=== PATIENT | female | born 1965 | race Caucasian/White ===

== ENCOUNTER 2017-02-17 08:03 | Observation (INO) | payer OTHER ==
[~2017-02-17] VITALS: Ht 157.5 cm; Wt 77.1 kg
--- NOTE | 2017-02-17 08:23 | ED GENERAL ADULT ---
History of Present Illness General Chief Complaint: Syncope and Near-Syncope Stated Complaint: BIBA FOR SYNCOPE Source: patient Exam Limitations: no limitations Vital Signs & Intake/Output Vital Signs & Intake/Output Vital Signs Date Time Temp Pulse Resp B/P B/P Pulse O2 O2 Flow FiO2 Mean Ox Delivery Rate 02/17 0805 96.9 66 20 134/80 100 Room Air Allergies Coded Allergies: amoxicillin (Severe, RASH 04/26/15) acetaminophen (From VICODIN) (Mild, ITCHING 04/26/15) hydrocodone (From VICODIN) (Mild, ITCHING 04/26/15) Triage Note: PT BIBA FROM HOME. STATES STARTED FEELING ILL ON FRIDAY, PRODUCTIVE COUGH AND COLD, RUNNY NOSE, CONTINUED THROUGH FRIDAY, LAST NIGHT STARTED WITH N/V/D. STATES THIS AM SHE FELT DIZZY ON THE WAY TO THE BR WHEN SHE HAD SYNCOPAL EVENT WHILE ON THE TOILET WITH LOC X 10 SECONDS X2. PT DENIES CP/SOB. STATES H/A AFTER D/T STRIKING HEAD. PT HAS NO RECOLLECTION OF EVENTS, OF PT WITNESSED Triage Nurses Notes Reviewed? yes Onset: Abrupt Duration: day(s): (3), constant, getting worse Timing: recent history Injury Environment: home No Modifying Factors: none HPI: 51-year-old female comes into the emergency room after having a syncopal episode at home prior to arrival. Patient reports that she's been feeling sick since this past Friday. She's had associated runny nose and body aches and chills and cough. The symptoms progressed until Friday. Last night she began with nausea vomiting and diarrhea. Less than 5 episodes of each. Denies any blood in the stool. Some abdominal cramping. Denies any chest pain shortness of breath. Patient reports this morning she was on her way to the bathroom when she felt profoundly weak lightheaded and dizzy and like she was going to black out. She reportedly had 2 short syncopal episodes that lasted approximately 10 seconds. She denied any preceding chest pain shortness of breath or palpitations. No prior history. EMS was called. Patient was brought in by ambulance. After the syncopal episode the patient apparently hit her head. She complains of headache at this time. There is been no vomiting since the fall. She denies any neck pain. (Gavin Valenzuela) Reconcile Medications No Known Home Medications (Isabela Montoya MD) Past History Travel History Traveled to [place] past 21 day No Medical History Any Pertinent Medical History? see below for history Neurological: NONE EENT: NONE Cardiovascular: NONE Respiratory: NONE Gastrointestinal: NONE Hepatic: NONE Renal: NONE Musculoskeletal: NONE Psychiatric: NONE Endocrine: 'ENLARGED THYROID" Tetanus Vaccine: 04/26/15 Surgical History Surgical History: non-contributory Psychosocial History What is your primary language Estonian Tobacco Use: Never used ETOH Use: denies use Illicit Drug Use: denies illicit drug use Family History Hx Contributory? No (Gavin Valenzuela) Review of Systems Review of Systems Constitutional: Reports: see HPI. EENTM: Reports: see HPI. Respiratory: Reports: see HPI. Cardiovascular: Reports: see HPI. GI: Reports: see HPI. Genitourinary: Reports: no symptoms. Musculoskeletal: Reports: see HPI. Skin: Reports: no symptoms. Neurological/Psychological: Reports: no symptoms. Hematologic/Endocrine: Reports: no symptoms. Immunologic/Allergic: Reports: no symptoms. All Other Systems: Reviewed and Negative (Gavin Valenzuela) Physical Exam Physical Exam General Appearance: alert, awake, lethargic Head: atraumatic Eyes: Bilateral: normal appearance, PERRL, EOMI. Ears, Nose, Throat: normal pharynx, normal ENT inspection, hearing grossly normal Neck: normal inspection, supple, full range of motion, no midline tenderness Respiratory: normal breath sounds, no respiratory distress Cardiovascular: regular rate/rhythm, tachycardia Gastrointestinal: soft, non-tender Back: normal inspection Extremities: normal inspection, normal range of motion, no edema Neurologic/Psych: no motor/sensory deficits, awake, alert, oriented x 3, normal gait, tram operator II-XII nml as tested Skin: intact, normal color Core Measures ACS in differential dx? No CVA/TIA Diagnosis: No Sepsis Present: No Sepsis Focused Exam Completed? No (Gavin Valenzuela) Physical Exam Cardiovascular: systolic murmur (Isabela Montoya MD) Progress Differential Diagnoses I considered the following diagnoses in my evaluation of the patient: Orthostatic hypotension, vasovagal, valvular disorder, gastric enteritis, influenza, viral syndrome, dehydration, electrolyte abnormality, AK, Plan of Care: Orders Procedure Date/time Status Regular Diet 02/17 L Active Patient Data 02/[address] in observation 02/17 1004 Active ED Holding Orders 02/17 1004 Active Vital Signs 02/17 1004 Active Code Status 02/17 1004 Active Add-on Test (ER Only) 02/17 0743 Active THYROID STIMULATING HORMONE 02/18 824 Complete MISTAKE 02/17 814 Active Telemetry/Drivers License Examiner 02/17 813 Active RAPID VIRAL INFLUENZA A 02/17 813 Complete URINALYSIS 02/17 813 Active TROPONIN LEVEL 02/17 813 Complete LIPASE 02/17 813 Complete LACTIC ACID 02/17 813 Complete COMPREHENSIVE METABOLIC PANEL 02/17 813 Complete CBC WITHOUT DIFFERENTIAL 02/17 813 Complete AMYLASE 02/17 813 Complete EKG 02/17 813 Active Intake & Output 02/18 812 Active Current Medications Sig/Bladimir Start time Last Medication Dose Stop Time Status Admin Sodium Chloride 1,000 ML ONCE ONE 02/17 914 AC 02/17 (Normal Saline 0.9%) 02/17 1554 0923 Laboratory Tests 02/17/17 1114: Lactic Acid Cancelled 02/17/17824: Anion Gap 11, Estimated GFR > 60, BUN/Creatinine Ratio 15.7, Glucose 133 H, Lactic Acid 0.8, Calcium 9.1, Total Bilirubin 0.4, AST 23, ALT 42, Alkaline Phosphatase 78, Troponin I < 0.01, Total Protein 6.3, Albumin 3.8, Globulin 2.5, Albumin/Globulin Ratio 1.5, Amylase 44, Lipase 75, TSH 1.250, CBC w Diff NO MAN DIFF REQ, RBC 4.30, MCV 87.3, MCH 29.6, RDW 12.6, MPV 7.2 L, Gran % 83.5 H, Lymphocytes % 9.6 L, Monocytes % 5.8, Eosinophils % 0.8, Basophils % 0.3, Absolute Granulocytes 6.8 H, Absolute Lymphocytes 0.8 L, Absolute Monocytes 0.5, Absolute Eosinophils 0.1, Absolute Basophils 0, PUBS MCHC 33.9 Microbiology 02/17 841 NASOPHARYN: Influenza Virus A & B Rapid Smear - COMP PATIENT SEEN AND EXAMINED. NO IMPROVEMENT AFTER FLUIDS, NO EVIDENCE OF DEHYDRATION. 2 SEPARATE EPISODES OF SYNCOPE AT HOME. WILL PLACE ON TELE FOR 23 HR OBS. (Lindsay SYED,Isabela) Diagnostic Imaging: Viewed by Me: Radiology Read, CT Scan. Discussed w/RAD: Radiology Read, CT Scan. Radiology Impression: PATIENT: RADHA WELLS PRESENT AGE: 51 PATIENT ACCOUNT NO: [id number] : 63 LOCATION: [facility] ORDERING PHYSICIAN: Gavin GÓMEZ SERVICE DATE: 02/17/17 EXAM TYPE: CAT - CT HEAD WO IV CONTRAST EXAMINATION: CT HEAD WITHOUT CONTRAST CLINICAL INFORMATION: Head injury after syncopal episode. COMPARISON: CT scan of the head 01/23/2017. TECHNIQUE: Contiguous axial imaging was performed from the skull base to vertex without intravenous administration of contrast. DLP: 625.24 mGy- cm FINDINGS: There is no acute intracranial hemorrhage or abnormal extra-axial collection. No intracranial mass effect or midline shift. Lateral and third ventricles are normal. No hydrocephalus. Samuel-white matter differentiation is grossly preserved and there is no evidence of acute territorial infarct. The calvarium and skull base are intact. Mastoid air cells and middle ear cavities are well aerated. Visualized paranasal sinuses are well-aerated. Globes and orbits are symmetric. IMPRESSION: Normal CT scan of the head. DICTATED BY: Benjamin Quevedo MD DATE/TIME DICTATED:02/17/171024 RN IMAGING: BEN DATE/TIME TRANSCRIBED:02/17/171024 CONFIDENTIAL, DO NOT COPY WITHOUT APPROPRIATE AUTHORIZATION. <Electronically signed in Other Vendor System> SIGNED BY: Benjamin Quevedo MD 02/17/17 1030, PATIENT: RADHA WELLS PRESENT AGE: 51 PATIENT ACCOUNT NO: [id number] : 63 LOCATION: [facility] ORDERING PHYSICIAN: Gavin GÓMEZ SERVICE DATE: 02/17/17 EXAM TYPE: RAD - XRY-PORTABLE CHEST XRAY EXAMINATION: XR PORTABLE CHEST CLINICAL INFORMATION: Syncope. Coughing. COMPARISON: Chest radiograph 08/2007. TECHNIQUE: Portable frontal view of the chest was obtained. FINDINGS: The lungs are clear without consolidation, edema, or effusion. There is no pneumothorax. The cardiomediastinal silhouette appears normal. The osseous structures are intact. IMPRESSION: No acute abnormality in the chest. DICTATED BY: Jed Pérez MD DATE/TIME DICTATED:02/17/17905 RN IMAGING: BEN DATE/TIME TRANSCRIBED:02/17/17905 CONFIDENTIAL, DO NOT COPY WITHOUT APPROPRIATE AUTHORIZATION. <Electronically signed in Other Vendor System> SIGNED BY: Jed Pérez MD 02/17/17 0910 Initial ED EKG: normal sinus rhythm, rate (63), BORDERLINE T WAVE ABNORMALITIES (Gavin Valenzuela) Departure Departure Disposition: STILL A PATIENT Condition: Stable Clinical Impression Primary Impression: Syncope Secondary Impressions: Viral syndrome Referrals: Wen SYED,Anita (PCP/Family) Departure Forms: Customer Survey General Discharge Information Observation Note Spoke With: Faina SYED,Anthony Physician Advisor Notified: ZOE ANDRADE DO Place Patient In: Non-ED OBS Care Area Rationale for Observation: My rational for observation is as follows . Patient will require echocardiogram. Cardiac telemetry. Cardiac consultation. Serial troponins. Unclear as to why the patient had a syncopal episode at this time. Medically not safe for discharge and will require further observation and management. (Gavin Valenzuela) Departure Prescriptions: Current Visit Scripts No Known Home Medications PA/PUBLICATIONS MANAGER Co-Sign Statement Statement: ED Attending supervision documentation- [X] I saw and evaluated the patient. I have also reviewed all the pertinent lab results and diagnostic results. I agree with the findings and the plan of care as documented in the PA's/PUBLICATIONS MANAGER's documentation. [X] I have reviewed the ED Record and agree with the PA's/PUBLICATIONS MANAGER's documentation. [] Additions or exceptions (if any) to the PAs/PUBLICATIONS MANAGER's note and plan are summarized below: [] (Lindsay SYED,Isabela) Critical Care Note Critical Care Note Critical Care Time: non-applicable (Gavin Valenzuela)
[2017-02-17 08:34] LABS: ABSOLUTE BASOPHIL COUNT 0 /CUMM (0.0-0.2); ABSOLUTE EOSINOPHIL COUNT 0.1 /CUMM (0.0-0.7); ABSOLUTE GRANULOCYTE CT 6.8 /CUMM (1.4-6.5); ABSOLUTE LYMPH COUNT 0.8 /CUMM (1.2-3.4); ABSOLUTE MONOCYTE COUNT 0.5 /CUMM (0.10-0.60); BASOPHIL % 0.3 % (0.0-2.0); EOSINOPHIL % 0.8 % (0-5); HEMATOCRIT 37.5 % (37-47); MEAN CORPUSCULAR HGB 29.6 PG (27.0-31.0); MEAN CORPUSCULAR HGB CONC 33.9 G/DL (33.0-37.0); MEAN CORPUSCULAR VOLUME 87.3 FL (81.0-99.0); MEAN PLATELET VOLUME 7.2 FL (7.4-10.4); PLATELET COUNT 275 /CUMM (130-400); RBC DISTRIBUTION WIDTH 12.6 % (11.5-14.5); WHITE BLOOD CELL COUNT 8.2 /CUMM (4.8-10.8)
[2017-02-17 08:53] LABS: GRANULOCYTE % 83.5 % (42.2-75.2)
--- NOTE | 2017-02-17 09:10 | RADIOLOGY REPORT ---
EXAMINATION: XR PORTABLE CHEST CLINICAL INFORMATION: Syncope. Coughing. COMPARISON: Chest radiograph 12/18/2007. TECHNIQUE: Portable frontal view of the chest was obtained. FINDINGS: The lungs are clear without consolidation, edema, or effusion. There is no pneumothorax. The cardiomediastinal silhouette appears normal. The osseous structures are intact. IMPRESSION: No acute abnormality in the chest.
--- NOTE | 2017-02-17 10:30 | CT SCAN REPORT ---
EXAMINATION: CT HEAD WITHOUT CONTRAST CLINICAL INFORMATION: Head injury after syncopal episode. COMPARISON: CT scan of the head 01/23/2017. TECHNIQUE: Contiguous axial imaging was performed from the skull base to vertex without intravenous administration of contrast. DLP: 625.24 mGy-cm FINDINGS: There is no acute intracranial hemorrhage or abnormal extra-axial collection. No intracranial mass effect or midline shift. Lateral and third ventricles are normal. No hydrocephalus. Samuel-white matter differentiation is grossly preserved and there is no evidence of acute territorial infarct. The calvarium and skull base are intact. Mastoid air cells and middle ear cavities are well aerated. Visualized paranasal sinuses are well-aerated. Globes and orbits are symmetric. IMPRESSION: Normal CT scan of the head.
--- NOTE | 2017-02-17 13:36 | History & Physical ---
Olman SYED,[facility] 02/17/17 1336: General Information and HPI MD Statement: I have seen and personally examined RADHA WELLS and documented this H&P. The patient is a 51 year old F who presented with a patient stated chief complaint of [syncopal attack]. Source of Information: patient, family Exam Limitations: no limitations History of Present Illness: Mrs. Wells is 51 year old lady with no significant past medical history except for ? Cardiac murmur who presented to ED with chief complaint of syncopal attack early this morning. Patient reported that since last Friday she has been experiencing symptoms of upper respiratory infection including nonproductive cough, congested nose, subjective fever and chills, body aches. Yesterday she started to have nausea, vomiting 3 times didn't have any blood, diarrhea 3 times daily and have any blood. Early this morning when the patient was in the bathroom on the toilet she passed out for about 10-20 seconds, her hear a bang and went to check on her. She was unresponsive and he laid her down on her side, denied any convulsion or stool/urinary incontinence. Patient regained consciousness and was disoriented for around 5-10 seconds and then started to regain his consciousness. The patient denied any straining while in the bathroom. She asked to go back to the toilet and again had dizziness and drowsiness but no loss of consciousness according to the however he reported she looked like having "frothy mouth"and called EMS. According to the son who was RN, her vital signs were within normal, no hypoglycemia. Patient denied decrease oral intake, prior similar episodes, dizziness,blurry vision, headaches except for after the syncopal attack. Currently has a headache 9/10 associated with photophobia but no blurry vision. The only medication she took was Mucinex yesterday one time. She reported history of sinusitis a month ago for which she took an antibiotic. Patient doesn't smoke, alcohol occasionally and no drugs. Allergies/Medications Allergies: Coded Allergies: amoxicillin (Severe, RASH 04/26/15) acetaminophen (From VICODIN) (Mild, ITCHING 04/26/15) hydrocodone (From VICODIN) (Mild, ITCHING 04/26/15) Home Med list No Known Home Medications Past History Travel History Traveled to [place] past 21 day No Medical History Neurological: NONE EENT: NONE Cardiovascular: NONE Respiratory: NONE Gastrointestinal: NONE Hepatic: NONE Renal: NONE Musculoskeletal: NONE Psychiatric: NONE Endocrine: 'ENLARGED THYROID" Tetanus Vaccine: 04/26/15 Surgical History Surgical History: non-contributory Past Family/Social History Psychosocial History ETOH Use: denies use Illicit Drug Use: denies illicit drug use Review of Systems Review of Systems Constitutional: Reports: chills, fever, weakness. EENTM: Reports: nasal congestion. Denies: blurred vision, visual changes, ear pain, throat pain. Cardiovascular: Denies: chest pain, orthopena, palpitations, peripheral edema. Respiratory: Reports: cough. Denies: short of breath, sputum production. GI: Reports: diarrhea, nausea, vomiting. Denies: abdominal pain, bloating. Genitourinary: Denies: dysuria, frequency, hematuria. Musculoskeletal: Denies: back pain, joint pain. Skin: Denies: rash. Neurological/Psychological: Reports: headache. Denies: confusion, numbness, tremors. Exam & Diagnostic Data Last 24 Hrs of Vital Signs/I&O Vital Signs Date Time Temp Pulse Resp B/P B/P Pulse O2 O2 Flow FiO2 Mean Ox Delivery Rate 02/17 1224 97.6 60 20 105/53 100 Room Air 02/17 1030 97.0 70 20 130/78 99 Room Air 02/17 0805 96.9 66 20 134/80 100 Room Air Intake & Output 02/17 1600 08 0800 02/17 0000 Intake Total 2300 Output Total 400 Balance 1900 Intake, IV 2000 Intake, Oral 300 Output, Urine 400 Patient 77.111 kg Weight Weight Reported by Patient Measurement Method Physical Exam General Appearance Alert, Oriented X3, Cooperative, No Acute Distress Skin No Rashes Skin Temp/Moisture Exam: Warm/Dry HEENT Atraumatic, PERRLA, EOMI, Mucous Membr. moist/pink Neck Supple Lymphatic no cervical lymphadenopathy Cardiovascular Regular Rate, Normal S1, Normal S2, No Murmurs Lungs Clear to Auscultation, Normal Air Movement Abdomen Normal Bowel Sounds, Soft, No Tenderness Neurological Normal Speech, Strength at 5/5 X4 Ext, Normal Tone, Sensation Intact, Cranial Nerves 3-12 NL, Reflexes 2+ Extremities No Clubbing, No Cyanosis, No Edema, Normal Pulses Assessment/Plan Assessment: Ms. Wells is 51 year old lady with no significant past medical history who was presented to ED with chief complaint of syncopal attack. On presentation vital signs were temperature 96.9, pulse 66 regular, blood pressure 154/80, respiratory rate 20 saturating 100% on room air. Labs pertinent to white blood cell 8.2, electrolytes sodium 142, potassium 4.3, chloride 104, bicarbonate 27, BUN/creatinine 11/0.7, glucose 153, lactic acid 0.8, troponin 0.01, UA negative, influenza rapid test negative Imaging CAT scan head negative for any intracranial pathology, chest x-ray unremarkable EKG normal sinus rhythm, rate 63, QTc 471 Problem list #Syncopal attack due to vsovagal versus dehydration #Upper respiratory tract infection patient reported subjective fever, chills, nonproductive cough. On presentation afebrile, no leukocytosis #Gastroenteritis with history of nausea, vomiting, diarrhea however no electrolyte imbalance Plan -Place in telemetry floor for observation -Gentle IV hydration 1 back normal saline 75 mL/h -Ibuprofen 400 3 times a day as an anti-inflammatory and for pain and acetaminophen for for moderate pain -Orthostats measurement -Echocardiogram given present history of syncope and remote history of questionable cardiac murmur -Vital signs every shift -CBC BMP in a.m. -Diet regular -DVT prophylaxis Lovenox aand ALPS -Code full As Ranked By This Provider Problem List: 1. Syncope Observation Initial Note - I have personally examined RADHA WELLS on 02/17/17 at 1445. The disposition of RADHA WELLS is uncertain at this time and before a determination can be made, she requires a period of observation for the following reasons [syncopal attack] Core Measures/Misc (10/27) Acute Coronary Syndrome ACS Diagnosis: No Congestive Heart Failure Congestive Heart Failure Diagnosis No Cerebrovascular Accident CVA/TIA Diagnosis: No VTE (View Protocol) VTE Risk Factors Age>40 No Mechanical VTE Prophylaxis d/t N/A MechProphylax Ordered No VTE Pharm Prophylaxis d/t NA PharmProphylax ordered Sepsis (View protocol) Sepsis Present: No Ady Norman MD 02/17/17 2137: Attending Review Statement Attending Statement Attending MD Statement: examined this patient, discuss w/resident/PA/ROUGH AND TRUING MACHINE OPERATOR, agreed w/resident/PA/ROUGH AND TRUING MACHINE OPERATOR, discussed with family, reviewed EMR data (avail), discussed with nursing, amended to note Attending Assessment/Plan: Patient is a pleasant 51-year-old female with no significant past medical history who presents after a syncopal episode at home. She reports that within the past few days she has been feeling unwell with upper respiratory symptoms. Yesterday she developed diarrhea and vomiting with worsening malaise. Today while getting up to try to use the bathroom she suddenly collapsed to the ground. This happened before she got to the bathroom. She reported feeling dizzy prior to the fall. She denies similar history is in the past. She did admit that about a month ago she complained of headache and dizziness and was seen by primary care provider. Head CT was done which was only significant for sinusitis. She was treated with antibiotics at that time. She arrived in emergency room hemodynamically stable. CT of the head shows no acute pathology is. She is hemodynamically stable and afebrile. Prostatic vitals were negative. On examination she is alert and oriented 3. She does complain of malaise. Denies cough or chest pain. Denies shortness of breath. She complains of sinus fullness with mild tenderness in the maxillary sinus on examination. Heart sounds are regular. Lungs are clear to auscultation. Abdomen is soft and nontender. She has no peripheral edema. She has no focal neurologic deficit. She has no significant findings on laboratory data. Laboratory data is not suggestive of significant dehydration and will lead to loss of consciousness. Recommendations: -Place in observation level of care. -Telemetry monitoring to rule out arrhythmias. Echocardiogram to rule out valvular heart disease. -Gentle hydration with intravenous fluids. -Recommend saline nasal spray for her sinus fullness. -Her gastroenteritis and upper respiratory symptoms appear to be secondary to a viral syndrome. She shows no evidence of a bacterial infection. We'll send stool samples for workup if diarrhea persists. -Further workup and management will depend on her clinical course.
[2017-02-17 21:57] VITALS: BP 110/64
[2017-02-18 07:12] VITALS: BP 104/66
[2017-02-18 07:54] LABS: ABSOLUTE BASOPHIL COUNT 0 /CUMM (0.0-0.2); ABSOLUTE EOSINOPHIL COUNT 0.1 /CUMM (0.0-0.7); ABSOLUTE MONOCYTE COUNT 0.5 /CUMM (0.10-0.60); BASOPHIL % 0.6 % (0.0-2.0); EOSINOPHIL % 1.2 % (0-5); GRANULOCYTE % 72.1 % (42.2-75.2); HEMATOCRIT 33.7 % (37-47); MEAN CORPUSCULAR HGB 30.2 PG (27.0-31.0); MEAN CORPUSCULAR HGB CONC 34.8 G/DL (33.0-37.0); MEAN CORPUSCULAR VOLUME 86.6 FL (81.0-99.0); MEAN PLATELET VOLUME 7.8 FL (7.4-10.4); PLATELET COUNT 253 /CUMM (130-400); RED BLOOD CELL CT 3.89 /CUMM (4.20-5.40); WHITE BLOOD CELL COUNT 5.6 /CUMM (4.8-10.8)
--- NOTE | 2017-02-18 08:08 | PN- Housestaff ---
Shiraz SYED,Josette 02/18/17 0808: Subjective Follow-up For: Post viral syncopal episode Complaints: tenderness on the sinuses Tele-Events Since Last Visit: No any overnight events Subjective: Patient is seen and examined at the bedside. She was feeling much comfortable. She denies any dizziness on walking, though she still has stuffy nose and tenderness on the sinuses. Review of Systems Constitutional: Reports: no symptoms (sinus tenderness), weakness. Objective Last 24 Hrs of Vital Signs/I&O Vitals were stable Physical Exam General Appearance: Alert, Oriented X3, Cooperative, No Acute Distress Cardiovascular: Normal S1, Normal S2 Lungs: Clear to Auscultation, Normal Air Movement Neurological: Normal Speech Extremities: No Clubbing, No Cyanosis, No Edema Assessment/Plan Assessment: Patient is a 51-year-old female with no significant past medical history, presented with chief complaints of syncopal episode. On examination, she was having stuffy nose and tenderness on the sinuses. Her vitals were stable. She remained afebrile throughout her hospital course. Her orthostatic vitals were also negative. CT scan of the head did not show any acute infarct or hemorrhages. Echocardiogram showed more than 65% of ejection fraction, no any regional wall abnormality. Discussed with the patient in detail about her medical condition. It seems that she had postviral syndrome leading to syncopal episode. We advised her to increase the water intake. We also advised her to follow-up with PCP if she started having fever, cough, chest pain. We discharge her without any medication. We advised her to follow-up with PCP within a week of discharge. Problem List: 1. Viral syndrome Pain Ratin Pain Location: Sinus tenderness Pain Goal: Remain pain free Pain Plan: NSAIDS Tomorrow's Labs & Rationales: Not applicable Ester SYED,Ady 02/18/17 1517: Attending MD Review Statement Attending Statement Attending MD Statement: examined this patient, discuss w/resident/PA/MORTGAGE BROKER, agreed w/resident/PA/MORTGAGE BROKER, discussed with family, reviewed EMR data (avail), discussed with nursing, discussed with case mgmt, amended to note Attending Assessment/Plan: Patient seen and examined. Resting comfortably on multiple acute distress. She feels much better this morning. Denies any dizziness. Denies nausea vomiting or diarrhea. Denies abdominal pain. She is afebrile hemodynamically stable and had no events overnight on courtroom clerk. Echocardiogram shows no evidence of valvular or wall motion abnormalities. On examination heart sounds are regular with normal. Lungs are clear bilaterally. Abdomen soft and nontender and she has no peripheral edema. She has no gross focal neurologic deficit as well. Her syncope was likely related to her viral syndrome. No neurologic or vascular abnormalities were noted during the observation overnight. She is medically stable to be discharged home and advised to follow-up with her primary care provider as an outpatient.
--- NOTE | 2017-02-18 09:50 | ECHOCARDIOGRAM REPORT ---
RADHA WELLS Age: 51 : 1965 Gender: F Exam Date: 02/17/2017 18:56 Exam Location: ER Ht (in): 62 Wt (lb): 170 BSA: 1.87 BP: 105 / 53 Ordering Physician: Madelaine Thurman MD Referring Physician: Madelaine Thurman MD Technologist: Monik Wilkerson RDCS Room Number: ER#8 Indications: PRESYNCOPE/SYNCOPE Rhythm: Sinus Technical Quality: Good FINDINGS Left Ventricle Normal size left ventricle. Mild concentric left ventricular hypertrophy. Normal left ventricular ejection fraction visually estimated at >65 %. No obvious regional wall motion abnormalities. Normal left ventricular diastolic filling pattern for age. Right Ventricle The right ventricle is normal in size and function. Right Atrium The right atrium is normal in size. Left Atrium The left atrium is normal in size. The interatrial septum is intact. Mitral Valve The mitral valve is normal in structure and function. There is mild mitral regurgitation. Aortic Valve Structurally normal aortic valve without significant sclerosis or stenosis. There is no aortic regurgitation. Tricuspid Valve The tricuspid valve is normal in structure and function. There is mild tricuspid regurgitation. Pulmonary artery systolic pressure is normal. Pulmonic Valve Structurally normal pulmonic valve. There is no pulmonic regurgitation. Pericardium Normal pericardium without effusion. No pleural effusion. Great Vessels Normal aortic root dimension. The aortic arch and great vessels are well seen and are normal. CONCLUSIONS Mild concentric left ventricular hypertrophy. Normal left ventricular ejection fraction visually estimated at >65 Normal left ventricular diastolic filling pattern for age. The left atrium is normal in size. No significant valve abnormalities. Physiologic valvular regurgitation. Christopher Weston M.D. (Electronically Signed) Final Date: 18 February 2017 09:49 MEASUREMENTS (Male / Female) Normal Values 2D ECHO LV Diastolic Diameter PLAX 4.3 cm 4.2 - 5.9 / 3.9 - 5.3 cm LV Systolic Diameter PLAX 2.8 cm 2.1 - 4.0 cm LV Fractional Shortening PLAX 34.9 % 25 - 46 % LV Ejection Fraction 2D Teich 64.4 % IVS Diastolic Thickness 1.2 cm LVPW Diastolic Thickness 1.2 cm LV Relative Wall Thickness 0.6 RV Internal Dim ED PLAX 2.8 cm 1.9 - 3.8 cm LVOT Diameter 2.0 cm Aortic Root Diameter 3.1 cm LA Systolic Diameter LX 3.7 cm 3.0 - 4.0 / 2.7 - 3.8 cm LA Volume 42.0 cm 18 - 58 / 22 - 52 cm Ascending Aorta Diameter 2.8 cm DOPPLER AV Peak Velocity 143.0 cm/s AV Peak Gradient 8.2 mmHg AV Mean Velocity 107.0 cm/s AV Mean Gradient 5.0 mmHg AV Velocity Time Integral 34.9 cm LVOT Peak Velocity 104.0 cm/s LVOT Peak Gradient 4.3 mmHg LVOT Mean Velocity 65.7 cm/s LVOT Mean Gradient 2.0 mmHg LVOT Velocity Time Integral 23.1 cm LVOT Stroke Volume 72.6 cm AV Area Cont Eq vti 2.1 cm AV Area Cont Eq pk 2.3 cm MV Peak Velocity 97.1 cm/s MV Peak Gradient 3.8 mmHg MV Mean Velocity 51.8 cm/s MV Mean Gradient 1.0 mmHg Mitral E Point Velocity 95.8 cm/s Mitral A Point Velocity 62.7 cm/s Mitral E to A Ratio 1.5 MV PHT Velocity 107.0 cm/s MV Deceleration [place] 450.0 cm/s MV Pressure Half Time 71.3 ms MV Area PHT 3.1 cm MV Deceleration Time 211.0 ms TR Peak Velocity 216.0 cm/s TR Peak Gradient 18.7 mmHg Right Atrial Pressure 5.0 mmHg Pulmonary Artery Systolic Pressu 23.7 mmHg Right Ventricular Systolic Press 23.7 mmHg PV Peak Velocity 81.8 cm/s PV Peak Gradient 2.7 mmHg PV Mean Velocity 58.4 cm/s PV Mean Gradient 2.0 mmHg PV Velocity Time Integral 20.8 cm LV E' Lateral Velocity 12.7 cm/s Mitral E to LV E' Lateral Ratio 7.5 LV E' Septal Velocity 8.6 cm/s Mitral E to LV E' Septal Ratio 11.1
--- NOTE | 2017-02-18 11:14 | Patient Discharge Instructions ---
Discharge Instructions General Discharge Information You were seen/treated for: You were seen here for syncopal episode secondary to viral syndrome be treated symptomatically by giving IV fluids and pain medication. Your blood workup comes back normal, including the echocardiogram., Special Instructions: Please follow-up with your PCP within a week of discharge or if your symptoms get worse, including fever, chills, chest pain, shortness of breath. Diet Recommended Diet: Regular Acute Coronary Syndrome Inclusion Criteria At DC or during hospital stay patient has or had the following: ACS DIAGNOSIS No Discharge Core Measures Meds if any: Prescribed or Continued at Discharge Meds if any: NOT Prescribed or Continued at Discharge Congestive Heart Failure Inclusion Criteria At DC or during hospital stay patient has or had the following: CHF DIAGNOSIS No Discharge Core Measures Meds if any: Prescribed or Continued at Discharge Meds if any: NOT Prescribed or Continued at Discharge Cerebrovascular accident Inclusion Criteria At DC or during hospital stay patient has or had the following: CVA/TIA Diagnosis No Discharge Core Measures Meds if any: Prescribed or Continued at Discharge Meds if any: NOT Prescribed or Continued at Discharge Venous thromboembolism Inclusion Criteria VTE Diagnosis No VTE Type NONE VTE Confirmed by (Test) NONE Discharge Core Measures - Per Current guidelines, there needs to be overlap - treatment for the first 5 days of Warfarin therapy. - If discharged on Warfarin prior to 5 days of - overlap therapy, the patient will need to be - assessed for post discharge needs including - *Post discharge parental anticoagulation - *Warfarin and/or parental anticoagulation education - *Follow up date to check INR post discharge At least 5 days overlap therapy as Inpatient No Meds if any: Prescribed or Continued at Discharge Warfarin No Note: Overlap Therapy is Warfarin and Anticoagulant Meds if any: NOT Prescribed or Continued at Discharge
== END 2017-02-18 13:00 ==
LOC: ERH 08:03 → ERHI 10:04 → ENRESERV 19:46 → ENTRNSPT 19:51 → CMPTRNSPT 20:19 → 1NO 21:04 → CMPTRNSPT 02-18 07:25 → 1NO 02-18 09:14 → ENPENDDIS 02-18 11:06 → 1NO 02-18 13:00
PROVIDERS: Physician Assistant Medical; Student in an Organized Health Care Education/Training Program
DX: R55 Syncope and collapse (principal); G93.3 Postviral and related fatigue syndromes
CPT/HCPCS: 6020; 36415; 71045; 81003; 82436; 87804; 87804-59; 93005; 93010; 93306; 96360; 96361; 96372; 96375; G0378; J0131; J1650; J1885